=== PATIENT | male | born 1990 | race Two or more races ===

== ENCOUNTER 2017-11-29 13:05 | Outpatient (CLI) | payer OTHER | END 2017-11-29 13:13 | disposition home or self-care (01) | LOC: RAD 501 13:05 | DX: M77.42 Metatarsalgia, left foot (principal); M54.5 Low back pain; R42 Dizziness and giddiness; R06.02 Shortness of breath ==

== ENCOUNTER 2018-02-09 14:13 | Outpatient (CLI) | payer OTHER | END 2018-02-09 14:52 | disposition home or self-care (01) | LOC: RAD 501 14:13 | DX: M79.675 Pain in left toe(s) (principal) ==